=== PATIENT | male | born 1955 | race Caucasian/White ===

== ENCOUNTER 2025-10-09 10:21 | Outpatient (REF) | payer MEDICARE, BC, SELFPAY ==
[2025-10-09 13:53] LABS: Appearance Urine Clear; Glucose Urine UA Negative (Negative); PH 6.5 (5.0-9.0); Specific Gravity - Urine 1.020 (1.005-1.025)
[2025-10-09 14:09] LABS: MANUAL DIFF FLAG NO
[2025-10-09 14:13] LABS: Hematocrit 46.2 % (42.0-52.0); Hemoglobin 15.3 g/dl (14.0-18.0); Imm Gran Abs Auto 0.02 X10*3/uL (0.00-0.03); Imm Gran Pct Auto 0.3 % (0.0-0.4); Lymphocytes Absolute Auto 2.4 X10*3/uL (1.2-4.9); Mean Corpuscular HGB Conc 33.1 g/dl (31.0-36.0); Mean Corpuscular Hemoglobin 30.2 pg (27.0-33.0); Mean Corpuscular Volume 91.3 fL (80.0-98.0); NRBC Abs Auto 0.000 X10*3/uL (0.0-0.012); NRBC Pct Auto 0.0 /100WBC (0.0-0.2); Platelet Count 224 X10*3/uL (160-400); Red Blood Count 5.06 X10*6/uL (4.60-5.80); White Blood Count 7.0 X10*3/uL (4.8-10.8)
[2025-10-09 14:45] LABS: Alanine Aminotransferase 33 U/L (0-40); Albumin Level 4.7 g/dL (3.5-5.0); Alkaline Phosphatase 64 U/L (39-117); Anion Gap 11 (12-20); Aspartate Amino Transferase 48 U/L (5-37); Blood Urea Nitrogen 15 mg/dL (9-16); Calcium 9.5 mg/dL (8.4-10.2); Carbon Dioxide 29 mmol/L (22-29); Chloride 106 mmol/L (96-108); Cholesterol 230 mg/dL (<200); Estimated Glomerular Filt Rate > 60; HDL Cholesterol 50 mg/dL (>40); Magnesium 2.1 mg/dL (1.6-2.6); Potassium 3.9 mmol/L (3.3-5.1); Sodium 142 mmol/L (135-145); Total Protein 7.7 g/dL (6.5-8.0); Triglycerides 108 mg/dL (<150)
[2025-10-09 15:29] LABS: Folate 13.7 ng/mL (> or = 4.0); Vitamin B12 650 pg/mL (200-900)
[2025-10-10 04:13] LABS: Syphilis Screen Nonreactive (Nonreactive)
[2025-10-10 04:28] LABS: HBS Num1 0.00 mIU/mL (0-7.99); HBsAGNum1 0.50 S/CO (0.00-0.99); HIV Num 1 0.07 S/CO (0.00-0.99); Hepatitis B Surface Antigen Negative (Negative); ~HepC Num1 0.13 S/CO (0.00-0.79); ~Hepatitis B Surface Antibody NONREACTIVE (Nonreactive); ~Hepatitis C Antibody Nonreactive (Nonreactive)
[2025-10-13 11:33] LABS: Vitamin D 25-OH, D2 <4 ng/mL; Vitamin D 25-OH, D3 25 ng/mL; Vitamin D 25-OH, Total 25 ng/mL (30-100)
== END 2025-10-09 10:22 | disposition home or self-care (01) ==
LOC: HO.HKASLDS 10:21
PROVIDERS: PCP Student in an Organized Health Care Education/Training Program; Visit Provider Student in an Organized Health Care Education/Training Program
DX: Z76.89 Persons encountering health services in other specified circumstances (principal); F41.0 Panic disorder [episodic paroxysmal anxiety]; F41.9 Anxiety disorder, unspecified; L40.9 Psoriasis, unspecified; B35.6 Tinea cruris; N40.0 Benign prostatic hyperplasia without lower urinary tract symptoms; E78.00 Pure hypercholesterolemia, unspecified; M19.90 Unspecified osteoarthritis, unspecified site; Z86.79 Personal history of other diseases of the circulatory system; Z13.31 Encounter for screening for depression; Z13.39 Encounter for screening examination for other mental health and behavioral disorders; Z13.1 Encounter for screening for diabetes mellitus
CPT/HCPCS: 36415; 80053; 80061; 81003; 82306; 82607; 82746; 83036; 83735; 84443; 85025; 86706; 86780; 86803; 87340; 87389; 96127; 99202

== ENCOUNTER 2025-10-09 10:21 | Outpatient (AMB) | payer MEDICARE, BC, SELFPAY ==
--- NOTE | 2025-10-09 10:25 | A.OFFPC_ITS ---
Vital Signs 10/09/25 10:43 Height 5 ft 6 in Weight 172 lb 2 oz BMI 27.8 BP 139/76 Blood Pressure Location Rt brachial Position Sitting Respiration 16 Pulse 75 Pulse Source Pulse Oximeter Temp 98.1 F Temp Source Oral Pulse Oximetry (%) 97 Oxygen Delivery Method Room Air Intake Visit Reasons: [employer] / sciatic nerve Intake Note: New patient present to establish care and discuss sciatic nerve. Field Representative Required: No Accompanied by: Self / Same As Patient Allergies bactrim Allergy (Unknown, Uncoded 10/09/25 10:29) Rash penicillin Allergy (Unknown, Uncoded 10/09/25 10:29) passed out tetracycline Allergy (Unknown, Uncoded 10/09/25 10:29) Abdominal Pain Medication List - Last Reconciled 10/12/25 by Jaydon Triana MD betamethasone, augmented 0.05 % appl topical escitalopram oxalate 10 mg PO DAILY nystatin-triamcinolone 100,000-0.1 unit/gram-% topical rosuvastatin 10 mg PO DAILY tamsulosin 0.4 mg PO BID Tobacco use date assessed: 10/09/25 Fall risk assessment: 1 Fall in past year Last assessed Fall Risk: 10/09/25 Dental Screening Dental Screen Date: 10/09/25 Did you have a dental visit in the last 12 months?: Yes Did you have a dental problem in the last 6 months where you did not have access to dental care?: No Was dental information given to patient?: Patient has dentist HPI HPI Comments History of Present Illness Details History of Present Illness The patient is a 70 year old male presenting to establish care with a new primary care physician as his previous doctor is retiring. Anxiety and Panic Attacks: The patient reports a history of panic and anxiety attacks, for which his previous primary care doctor prescribed citalopram over a year ago. He states the medication helps a lot and denies receiving any mental health care from a psychiatrist or therapist. Psoriasis: The patient has a history of psoriasis, for which he sees a flooring professional. Previously, the condition was widespread over his skin. Treatments include betamethasone cream and Otezla (apremilast) pills, which have led to improvement in his skin and nails. He also notes psoriatic involvement in his ears causing some pain, and has an itchy lesion on his leg which he attributes to psoriasis. Tinea Cruris: The patient uses a combination nystatin-triamcinolone cream for an intermittent rash in the groin area. Benign Prostatic Hyperplasia: The patient takes tamsulosin for an enlarged prostate and reports he would be unable to urinate without it. Hypercholesterolemia: Rosuvastatin was prescribed for high cholesterol by his previous doctor about two days ago, but the patient has not yet started taking the medication. History of Supraventricular Tachycardia: The patient reports an episode in 1979 that he believes was a heart attack, where his heart rate was over 200 beats per minute. He was hospitalized for two weeks and treated with Inderal and digoxin, which were later discontinued. He had two episodes in total but has been asymptomatic since and does not currently see a pick up worker. Musculoskeletal History: The patient experiences right hip pain following a fall, with an X-ray showing a rthritis. He also reports a diagnosis of rheumatism and generalized arthritis affecting his whole body. Surgical History: - Bilateral inguinal hernia repair Medications: - Citalopram for panic and anxiety attac ks - Tamsulosin for enlarged prostate/diffi culty urinating - Betamethasone cream for psoriasis - Nystatin-Triamcinolone cream for a fan in rash - Otezla (apremilast) pills for psoriasi s - Rosuvastatin for cholesterol (prescrib ed but not yet taken) Social History: - Tobacco Use: Patient is a former smoke r who quit in 2002. - Illicit Drug Use: Denies any current o r prior illicit drug use. - Living Situation: Lives with his and grown children. 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 - Activity Level: Reports trying to stay active and do something always, but no specifics were discussed. Diagnostic Results: - Low-dose CT scan: Showed something at the bottom of the lungs that was not gr owing. - X-ray of the right hip: Showed arthrit is. - Colonoscopy: Performed about three yea rs ago, with normal results. Past Medical History - Anxiety and panic attacks, managed wit h citalopram. - Psoriasis, under dermatologic care, tr eated with Otezla and topical steroids. - Benign prostatic hyperplasia, managed with tamsulosin. - Hypercholesterolemia, recently prescri bed rosuvastatin. - Arthritis and rheumatism, with right h ip pain status-post fall. - Lung nodules, noted on low-dose CT to be stable and not growing. - Tinea cruris, treated with topical nys tatin/triamcinolone. - History of left nephrolithiasis. - History of diverticulitis. - History of supraventricular tachycardi a in 1979, with hospitalization and treatment with Inderal and digoxin at that time; he is currently asymptomatic and not on treatment. - Former smoker, quit in 2002. - Hospitalizations: Left kidney stone, b ilateral inguinal hernia repair, and supraventricular tachycardia. Health Maintenance - The patient is 70 years old. - Colonoscopy: Last performed [facility] three years ago with normal results. - Lung Cancer Screening: Underwent low-d ose CT scan in the past due to smoking history, which showed stable nodules, and he was informed he no longer required follow-up. - Lifestyle: The patient reports being a ctive to help with arthritis pain. [facility] Medical History (Updated 10/12/25 @ 09:35 by Jaydon Triana MD) Arthritis History of paroxysmal supraventricular tachycardia Hypercholesterolemia BPH (benign prostatic hyperplasia) Tinea cruris Psoriasis Panic attacks Anxiety Fatty liver COPD (chronic obstructive pulmonary disease) Family History (Updated 10/09/25 @ 10:35 by Brett Chambers CMA) Son Mental health disorder Social History (Updated 10/09/25 @ 10:35 by Brett Chambers CMA) Housing: House Alcohol intake: former Patient Tobacco Use Status: Former Tobacco user Years Smoked: 32 years e-Cigarette/Vaping Use: Never Used service: Yes Current occupational status: retired Cognitive needs: No Hearing needs: No Vision needs: No Questionnaire PHQ-9 Over the last 2 weeks, how often have you been bothered by any of the following problems? 1. Little interest or pleasure in doing things: not at all 2. Feeling down, depressed, or hopeless: not at all 3. Trouble falling or staying asleep, or sleeping too much: nearly every day 4. Feeling tired or having little energy: more than half the days 5. Poor appetite or overeating: not at all 6. Feeling bad about yourself - or that you are a failure or have let yourself or your family down: not at all 7. Trouble concentrating on things, such as reading the newspaper or watching television: not at all 8. Moving or speaking so slowly that other people could have noticed. Or the opposite - being so fidgety or restless that you have been moving around a lot more than usual: not at all 9. Thoughts that you would be better off or of hurting yourself in some way: not at all Total score: 5 Depression Screening Interpretation: Negative Depression Screening Done: Yes 96385 - PHQ-9 Billing: Yes Source: Developed by Drs. Jay Brenner, Larissa Mendoza, Ryan Ramirez and colleagues, with an educational waldo from [employer]. Thrive Questionnaire Date Thrive assessed: 10/06/25 I am a: Patient What is your living situation today?: I have a steady place to live Within the past 12 months, did the food you bought not last and you didn't have the money to get more?: Never true Within the past 12 months, did you worry whether your food would run out before you got money to buy more?: Never true Do you have trouble paying for medicines?: No Do you have trouble getting transportation to medical appointments?: No Do you have trouble paying your heating and electricity bill?: No Do you have trouble taking care of your child, family member or friend?: No Do you have trouble with day-to-day activities such as bathing, preparing meals, shopping, managing finances, etc.?: No Are you currently unemployed and looking for a job?: No Are you interested in more education?: No Please select the resources that you would like help with: None Currently or been in a relationship where the following occur: No concerns reported THRIVE Score: 0 AUDIT C Alcohol Use Questionnaire (AUDIT-C) 1. How often do you have a drink containing alcohol?: Never Total Score: 0 BRENDA-7 AMB Questionnaire BRENDA-7 Date BRENDA - 7 assessed: 10/09/25 Feeling nervous, anxious, or on edge: 0 = Not at all Not being able to stop or control worryin = Not at all Worrying too much about different things: 1 = Several days Trouble relaxin = Several days Being so restless that it is hard to sit still: 0 = Not at all Becoming easily annoyed or irritable: 0 = Not at all Feeling afraid as if something awful might happen: 1 = Several days Total BRENDA-7 score (0-4 normal; 5-9 mild; 10-14 moderate; 15-21 severe): 3 Source: Developed by Drs. Jay Brenner, Larissa Mendoza, Ryan Ramirez and colleagues, with an educational waldo from [employer]. BRENDA-7 Assessment Billing BRENDA-7 Assessment Tool: BRENDA-7 Assessment 06190 Review of Systems Narrative Review of Systems - Constitutional: Reports generalized bone pain. - Skin: Reports dry skin and psoriatic lesions on nails and skin, including an itchy lesion on the leg. - HEENT: Reports some ear pain, which he attributes to psoriasis. - Cardiovascular: Denies current symptoms. Reports remote history of palpitations with a heart rate over 200 bpm. - Genitourinary: Reports difficulty urinating if he does not take his medication . Reports normal bowel and bladder function otherwise. - Musculoskeletal: Reports right hip pain after a fall. Reports generalized arthritis and rheumatism. - Neurological/Psychiatric: Reports history of panic and anxiety attacks. Reports insomnia, sleeping only five hours before waking up. 10-point ROS reviewed and negative except as noted in HPI Physical exam (Primary Care) Vital Signs: Last Vital Signs Temp 98.1 F 10/09/25 10:43 Pulse 75 10/09/25 10:43 Resp 16 10/09/25 10:43 BP 139/76 10/09/25 10:43 Pulse Ox 97 10/09/25 10:43 Oxygen Delivery Method Room Air 10/09/25 10:43 BMI result Body Mass Index 27.8 Tobacco/Smoking Status: Tobacco use Status Tobacco use date assessed 10/09/25 10/09/25 10:34 Patient Tobacco Use Status Former Tobacco user 10/09/25 10:35 e-Cigarette/Vaping Use Never Used 10/09/25 10:35 PHQ-9: PHQ-9 Score PHQ-9: Total score 5 10/09/25 10:46 Depression Screening Interpretation: Negative Thrive Assessment: Date of Thrive Assessment Date Thrive assessed 10/06/25 10/09/25 10:27 Currently or been in a relationship where the following occur: No concerns reported Narrative Physical Exam General: Well-appearing, in no acute distress. Vital signs: Within normal limits. HEENT: Normocephalic, atraumatic. PERRLA, EOMI. Conjunctiva clear, sclera anicteric. Oropharynx clear, mucous membranes moist. TMs intact bilaterally. Psoriasis noted in both ears with possible infection. Neck: Supple, no lymphadenopathy, no thyromegaly, no JVD or carotid bruits. Cardiovascular: RRR, normal S1/S2, no murmurs, rubs, or gallops. Peripheral pulses 2+ and symmetric. No edema. Respiratory: Lungs clear to auscultation bilaterally, no wheezes, rales, or rhonchi. Normal effort. Abdomen: Soft, non-tender, non-distended. Normoactive bowel sounds. No hepatosplenomegaly, no masses. MSK: Full range of motion, no joint swelling or deformity. Normal gait. Right hip pain noted, likely due to arthritis. Skin: Warm, dry, intact. Psoriasis noted with dry skin and nail changes. No ra shes, lesions, or pallor. Neuro: Alert and oriented x3. Cranial nerves II-XII intact. Strength 5/5 throughout. Sensation intact. Reflexes 2+ symmetric. Normal coordination and gait. Psych: Appropriate mood and affect. Normal judgment and insight. History of panic and anxiety attacks, currently managed with citalopram. Coding Level of Care Code New Pt Level 4 (19959) Add On Problem Visit Only Diagnoses Anxiety F41.9 Panic attacks F41.0 Psoriasis L40.9 Tinea cruris B35.6 BPH (benign prostatic hyperplasia) N40.0 Hypercholesterolemia E78.00 History of paroxysmal supraventricular tachycardia Z86.79 Arthritis M19.90 Additional Codes BRENDA-7 Assessment Billing - BRENDA-7 Assessment Tool: BRENDA-7 Assessment 89838 ([id number]) PHQ-9 - 93748 - PHQ-9 Billing: Yes ([id number]) Assessment & Plan Assessment & Plan (1) Anxiety: Code(s): F41.9 - Anxiety disorder, unspecified Category: Medical (2) Panic attacks: Code(s): F41.0 - Panic disorder [episodic paroxysmal anxiety] Category: Medical (3) Psoriasis: Code(s): L40.9 - Psoriasis, unspecified Category: Medical (4) Tinea cruris: Code(s): B35.6 - Tinea cruris Category: Medical (5) BPH (benign prostatic hyperplasia): Code(s): N40.0 - Benign prostatic hyperplasia without lower urinary tract symptoms Category: Medical (6) Hypercholesterolemia: Code(s): E78.00 - Pure hypercholesterolemia, unspecified Category: Medical (7) History of paroxysmal supraventricular tachycardia: Code(s): Z86.79 - Personal history of other diseases of the circulatory system Category: Medical (8) Arthritis: Code(s): M19.90 - Unspecified osteoarthritis, unspecified site Category: Medical Plan Consent The patient provided verbal consent to have pictures taken of his psoriatic lesions to be included in his medical chart. He also consented to having his medical records transferred from his previous providers. Patient was informed and verbally consented to the use of an ambient scribe for clinic note documentation during this visit. Plan 1. Establishment Of Care - Will order baseline laboratory tests to obtain a comprehensive overview of the patient's health. - Labs to include: complete blood count (CBC), comprehensive metabolic panel (CMP), hemoglobin A1c, lipid panel, thyroid stimulating hormone (TSH), vitamin B12, folate, vitamin D, hepatitis B, hepatitis C, HIV, and syphilis. - Will obtain patient records from his previous providers. - Plan to follow up in two weeks to discuss lab results and establish a further plan of care. 2. Anxiety And Panic Attacks - Will continue the patient's current medication, citalopram, as he reports it is effective. 3. Psoriasis - Will refill current medications including betamethasone cream and nystatin- triamcinolone cream. - For dry, itchy skin in the ear canals, advised the patient to apply mineral oil with a Q-tip to the external area to moisturize the skin. - Patient to continue follow up with his flooring professional. 4. Benign Prostatic Hyperplasia - Will provide a refill for tamsulosin. 5. Arthritis - Recommended staying active to help slow the progression and alleviate symptoms of arthritis, bone pain, and joint pain. 6. Hypercholesterolemia - A lipid panel will be checked as part of baseline labs to assess cholesterol and triglyceride levels. - The need for rosuvastatin, which the patient has not yet started, will be evaluated at the follow-up visit. Discussion Notes I conducted a new patient visit with this 70-year-old male who is establishing care because his prior physician is retiring. We reviewed his medical history and current medications. I explained that I would order a comprehensive set of baseline labs, including a CBC, CMP, A1c, lipid panel, thyroid, vitamins, and infectious disease screening, to get a broad overview of his health. I informed him that I would have no problem refilling his current medications, including citalopram, tamsulosin, and topical creams. We discussed his psoriatic symptoms in the ear canals, and I recommended using mineral oil externally to moisturize the area. Regarding his arthritis and generalized pain, I advised that staying active is reina to alleviating symptoms. I arranged for him to have his bloodwork done today at our on-site lab and scheduled a follow-up appointment in two weeks to review the results and discuss next steps. We also initiated the process to obtain his outside medical records. The patient agreed with the proposed plan. Patient Instructions - Please go to the lab here in the office today to have your blood drawn for the ordered tests. - Come back for a follow-up visit in two weeks to discuss your lab results. - You can continue taking your current medications. I will send refills to your pharmacy. - For the itchy skin in your ears, you can dip a Q-tip in mineral oil and gently apply it to the outside of the ear canal to help moisturize the area. - Please fill out the paperwork to allow us to get your medical records from your other doctors. - Try to stay active to help with your arthritis pain. Medical Decision Making The patient is a 70-year-old male with multiple chronic conditions presenting to [facility] care. The primary goal of this visit is to gather baseline information and ensure continuity of care for his established problems. Given his age and multiple comorbidities, a comprehensive laboratory evaluation is warranted to get an objective overview of his current health status. This includes assessing glycemic control (A1c), renal function, liver function, electrolytes (CMP), cholesterol status (lipid panel), and screening for common nutritional deficiencies (B12, vitamin D) and infectious diseases (HIV, syphilis, hepatitis). 30 min His current medications for anxiety (citalopram) and BPH (tamsulosin) appear to be effective and will be continued. A decision on initiating the recently prescribed rosuvastatin will be deferred until his baseline lipid panel results are available. His psoriasis is managed by a flooring professional, and my role will be to support that care by refilling topical medications and providing symptomatic advice for minor issues, such as using mineral oil for xerosis of the ear canal. His history of supraventricular tachycardia is remote and he is asymptomatic, thus no acute cardiac workup is needed at this time, though the history is noted. Requesting outside records is critical to fully understand his past workups, including his lung nodule surveillance and prior cardiac evaluation. A follow-up in two weeks is appropriate to review all data and formulate a long- term, problem-based management plan. Total Time Statement Total time spent caring for the patient today includes pre-visit chart review, documentation, review of laboratory and diagnostic imaging results, medication reconciliation, medically necessary evaluation, counseling on diagnoses, care coordination, ordering appropriate tests and medications, review of tests performed by other providers, reporting test results to the patient, and communication with other healthcare providers. Orders: Orders Vitamin D 25-OH (D2 and D3) 10/09/25 - Encounter for screening, unspecified Hepatitis B Surface Antigen 10/09/25. - Encounter for screening, unspecified Hepatitis C Antibody 10/09/25. - Encounter for screening, unspecified HIV Ab/Ag 10/09/25. - Encounter for screening, unspecified Lipid Panel 10/09/25. - Encounter for screening, unspecified Magnesium 10/09/25. - Encounter for screening, unspecified Syphilis Screen 10/09/25. - Encounter for screening, unspecified TSH reflex Free T4 10/09/25. - Encounter for screening, unspecified Complete Blood Count Auto Diff 10/09/25. - Encounter for screening, unspecified Comprehensive Met. Panel 10/09/25. - Encounter for screening, unspecified Hemoglobin A1c 10/09/25. - Encounter for screening, unspecified Hepatitis B Surface Antibody 10/09/2513. - Encounter for screening, unspecified UA CC w/rflx Micro + Cult 10/09/25 Z13. - Encounter for screening, unspecified Vitamin B12 and Folate 10/09/25. - Encounter for screening, unspecified
[2025-10-09 10:43] VITALS: BP 139/76; PULSE 75; RESP 16; TEMP 36.7; O2SAT 97; BMI 27.8
== END 2025-10-09 11:08 | disposition home or self-care (01) ==
LOC: HO.HMCFMS 10:22
PROVIDERS: Visit Provider Student in an Organized Health Care Education/Training Program
DX: F41.9 Anxiety disorder, unspecified (principal); F41.0 Panic disorder [episodic paroxysmal anxiety]; L40.9 Psoriasis, unspecified; B35.6 Tinea cruris; N40.0 Benign prostatic hyperplasia without lower urinary tract symptoms; E78.00 Pure hypercholesterolemia, unspecified; Z86.79 Personal history of other diseases of the circulatory system; M19.90 Unspecified osteoarthritis, unspecified site